=== PATIENT | male | born 1965 ===

== ENCOUNTER 2018-04-27 15:29 | Emergency (ER) | payer OTHER ==
--- NOTE | 2018-04-27 15:49 | ED PDOC ---
Arrival/HPI - General Chief Complaint: High Blood Pressure Time Seen by Provider: 04/27/18 15:31 Historian: Patient, EMS - History of Present Illness Time/Duration: Prior to Arrival Symptom Onset: Gradual Symptom Course: Unchanged Severity Level: Moderate Associated Symptoms (Text): 04/27/18 15:47 Patient reports generalized weakness and fatigue along with dizziness and lightheadedness and near-syncope beginning just prior to arrival. There is a history of hypertension, and he has not taken his medications in the last 2 days because he forgot. History of hyperlipidemia and borderline diabetes. No chest pain palpitations or dyspnea. No nausea or vomiting. No recent head trauma. No numbness tingling or paresthesias. No weakness. Past Medical History - Cardiac Hx Hypertension: Yes - Psychiatric Hx Substance Use: No - Anesthesia Hx Anesthesia: No Hx Anesthesia Reactions: No Hx Malignant Hyperthermia: No Family/Social History - Physician Review Nursing Documentation Reviewed: Yes Family/Social History: Unknown Family HX Smoking Status: Never Smoked Hx Alcohol Use: No Hx Substance Use: No Allergies/Home Meds Allergies/Adverse Reactions: Allergies Penicillins Allergy (Verified 04/27/18 15:35) ANAPHYLAXIS Review of Systems - Physician Review All systems were reviewed & negative as marked: Yes - Review of Systems Constitutional: absent: Fatigue, Fevers Respiratory: absent: SOB, Wheezing Cardiovascular: absent: Chest Pain, Palpitations, Syncope Gastrointestinal: absent: Abdominal Pain, Diarrhea, Nausea, Vomiting Neurological: Dizziness. absent: Headache, Focal Weakness, Gait Changes, Speech Changes, Facial Droop, Disequilibrium, Seizure Physical Exam Temperature: Afebrile Blood Pressure: Hypertensive Pulse: Regular Respiratory Rate: Normal Appearance: Positive for: Well-Appearing, Non-Toxic, Comfortable Pain Distress: None Mental Status: Positive for: Alert and Oriented X 3 - Systems Exam Head: Present: Atraumatic, Normocephalic Pupils: Present: PERRL Extroacular Muscles: Present: EOMI Conjunctiva: Present: Normal Ears: Present: NORMAL TM, Normal Canal. No: Erythema, TM Bulging Mouth: Present: Moist Mucous Membranes Pharnyx: No: ERYTHEMA, EXUDATE, TONSILS ENLARGED Neck: Present: Normal Range of Motion Respiratory/Chest: Present: Clear to Auscultation, Good Air Exchange, Decreased Breath Sounds. No: Respiratory Distress, Accessory Muscle Use Cardiovascular: Present: Regular Rate and Rhythm, Normal S1, S2. No: Murmurs Abdomen: No: Tenderness, Distention, Peritoneal Signs, Rebound, Guarding Upper Extremity: Present: Normal Inspection. No: Cyanosis, Edema Lower Extremity: Present: Normal Inspection. No: Edema Neurological: Present: GCS=15, CN II-XII Intact, Speech Normal, Motor Func Grossly Intact, Normal Sensory Function, Normal Cerebellar Funct Skin: Present: Warm, Dry, Normal Color. No: Rashes Psychiatric: Present: Alert, Oriented x 3, Normal Insight, Normal Concentration Medical Decision Making ED Course and Treatment: 04/27/18 15:58 EKG shows sinus tachycardia rate approximately 105 with poor R-wave progression and a left axis and no acute ST or T-wave changes. 04/27/18 16:50 Procedure: Chest X-ray Impression: No active disease. Dictator: Matty Seo MD 04/27/18 17:35 Symptoms are improved. Blood pressure is markedly improved. Patient reports that he does have his prescriptions at home, and he will take them as prescribed. - RAD Interpretation Radiology Orders: 04/27/18 15:45 HEAD W/O CONTRAST [CT] Stat CHEST PORTABLE [RAD] Stat Chest one view as read by the radiologist shows no infiltrate effusion or cardiomegaly. CT scan of the head as read by the radiologist shows an arachnoid cyst, otherwise unremarkable. Fun House Attendant: Radiologist - Medication Orders Current Medication Orders: Clonidine HCl (Catapres) 0.2 mg PO ONCE ONE Stop: 04/27/18 15:47 Disposition/Present on Arrival - Present on Arrival Any Indicators Present on Arrival: No History of DVT/PE: No History of Uncontrolled Diabetes: No Urinary Catheter: No History of Decub. Ulcer: No History Surgical Site Infection Following: None - Disposition Have Diagnosis and Disposition been Completed?: Yes Diagnosis: Hypertension, Dizziness Disposition: HOME/ ROUTINE Disposition Time: 17:36 Patient Plan: Discharge Condition: IMPROVED Discharge Instructions (ExitCare): High Blood Pressure in Adults, Dizziness, Nonvertigo, (DC) Additional Instructions: Take your medications as prescribed. Follow-up with your PMD. Follow up in the ER as needed. Referrals: PCP,NO [Primary Care Provider] - Follow up with primary Forms: [employer] (Israeli)
--- NOTE | 2018-04-27 16:12 | RAD ---
Date of service: 04/27/2018 HISTORY: htn COMPARISON: No prior. FINDINGS: LUNGS: No active pulmonary disease. PLEURA: No significant pleural effusion identified, no pneumothorax apparent. CARDIOVASCULAR: No aortic atherosclerotic calcification present. Normal cardiac size. No pulmonary vascular congestion. OSSEOUS STRUCTURES: No significant abnormalities. VISUALIZED UPPER ABDOMEN: Normal. OTHER FINDINGS: None. IMPRESSION: No active disease.
[2018-04-27 16:23] LABS: BASO # 0.01 K/mm3 (0.0-2.0); BASO % 0.1 % (0.0-3.0); EOS # 0.3 (0.0-0.7); EOS % 3.9 % (1.5-5.0); GRAN # 4.12 (1.4-6.5); GRAN % 61.8 % (50.0-68.0); HEMOGLOBIN 14.5 g/dL (14.0-18.0); LYMPH # 1.9 (1.2-3.4); LYMPH % 27.8 % (22.0-35.0); MEAN CORPUSCULAR HGB CONC 33.7 g/dl (31.0-37.0); MONO # 0.4 (0.1-0.6); MONO % 6.4 % (1.0-6.0); RED CELL DISTRIBUTION WIDTH 13.9 % (11.5-14.5); WHITE BLOOD COUNT 6.7 10^3/uL (4.5-11.0)
[2018-04-27 16:37] LABS: ALB/GLOB RATIO 1.3 (1.1-1.8); ALBUMIN 4.4 g/dL (3.0-4.8); ALT/SGPT 39 U/L (7-56); AST/SGOT 29 U/L (17-59); BLOOD UREA NITROGEN 16 mg/dL (7-21); CALCIUM 9.7 mg/dL (8.4-10.5); GFR NON-AFRICAN AMERICAN > 60
[2018-04-27 16:46] LABS: TROPONIN I < 0.01 ng/mL
[2018-04-27 16:53] LABS: CK-MB 2.4 ng/mL (0.0-3.6)
[2018-04-27 17:14] VITALS: RESP 18; TEMP 98; O2SAT 95
--- NOTE | 2018-04-27 17:31 | CT ---
Date of service: 04/27/2018 PROCEDURE: CT HEAD WITHOUT CONTRAST. HISTORY: dizzy COMPARISON: None available. TECHNIQUE: Axial computed tomography images were obtained through the head/brain without intravenous contrast. Radiation dose: Total exam DLP = 1467.38 mGy-cm. This CT exam was performed using one or more of the following dose reduction techniques: Automated exposure control, adjustment of the mA and/or kV according to patient size, and/or use of iterative reconstruction technique. FINDINGS: HEMORRHAGE: No intracranial hemorrhage. BRAIN: Left middle cranial fossa arachnoid cyst causing mild left temporal sulcal effacement. No atrophy or chronic microvascular ischemic changes. VENTRICLES: Unremarkable. No hydrocephalus. CALVARIUM: Unremarkable. PARANASAL SINUSES: Pansinus mucosal thickening. MASTOID AIR CELLS: Unremarkable as visualized. No inflammatory changes. OTHER FINDINGS: None. IMPRESSION: No acute intracranial pathology. Left middle cranial fossa arachnoid cyst. Pansinus mucosal thickening.
[2018-04-27 18:03] VITALS: BP 140/79; PULSE 93
--- NOTE | 2018-04-28 07:57 | CARD ---
APPROVED REPORT Date of service: 04/27/2018 EKG Measurement Heart [id number] <Conclusion> Sinus tachycardia Left axis deviation Abnormal ECG
== END 2018-04-27 18:10 | disposition home or self-care (01) ==
LOC: ED 15:29
DX: I10 Essential (primary) hypertension (principal); R42 Dizziness and giddiness; E78.5 Hyperlipidemia, unspecified

== ENCOUNTER 2018-07-17 12:59 | Emergency (ER) | payer OTHER ==
[2018-07-17 13:14] VITALS: RESP 18; BMI 36.9
--- NOTE | 2018-07-17 15:18 | ED PDOC ---
Arrival/HPI - General Chief Complaint: Palpitations Time Seen by Provider: 07/17/18 13:00 Historian: Patient - History of Present Illness Narrative History of Present Illness (Text): 07/17/18 15:18 A 52 year old male, whose past medical history includes hypertension, presents to the emergency department complaining of shortness of breath and some chest heaviness since this morning. Patient reports he was lifting a heavy box when he suddenly felt symptoms, with chest heaviness first developing to the left-side. Notes shortness of breath is gone with rest, however worsens with exertion. Has had these episodes occur multiple times since admission in 04/2018. Patient believes he might have asthma. Patient notes also experiencing lightheadedness, mild headaches (since head trauma 1 year ago), however denies nausea, vomiting, or any other complaints at this time. No PMD Past Medical History - Provider Review Nursing Documentation Reviewed: Yes - Infectious Disease Hx of Infectious Diseases: None - Cardiac Hx Hypertension: Yes - Pulmonary Hx Respiratory Disorders: No - Neurological Hx Neurological Disorder: No - HEENT Hx HEENT Disorder: No - Renal Hx Renal Disorder: No - Endocrine/Metabolic Hx Endocrine Disorders: No - Hematological/Oncological Hx Blood Disorders: No - Integumentary Hx Dermatological Disorder: No - Musculoskeletal/Rheumatological Hx Musculoskeletal Disorders: No - Gastrointestinal Hx Gastrointestinal Disorders: No - Genitourinary/Gynecological Hx Genitourinary Disorders: No - Psychiatric Hx Psychophysiologic Disorder: No Hx Substance Use: No - Surgical History Hx Appendectomy: Yes - Anesthesia Hx Anesthesia: No Hx Anesthesia Reactions: No Hx Malignant Hyperthermia: No Family/Social History - Physician Review Nursing Documentation Reviewed: Yes Family/Social History: No Known Family HX Smoking Status: Never Smoked Hx Alcohol Use: Yes Frequency of alcohol use: Socially Hx Substance Use: No Allergies/Home Meds Allergies/Adverse Reactions: Allergies Penicillins Allergy (Verified 04/27/18 15:35) ANAPHYLAXIS Review of Systems - Physician Review All systems were reviewed & negative as marked: Yes - Review of Systems Respiratory: SOB Cardiovascular: PERRY, Other (chest heaviness) Gastrointestinal: absent: Nausea, Vomiting Neurological: Headache (lightheadedness and mild headaches (since head trauma 1 year ago)) Physical Exam - Physical Exam Narrative Physical Exam (Text): Gen: VS reviewed, alert, well developed, well nourished, nontoxic, mild distress. ENT: normal pharynx. Eye: EOMI, PERRL. Neck: no JVD, supple, no adenopathy. CV: tachycardic, regular rhythm, no rubs, no murmur, no gallops, S1, S2, pulses equal and strong. Pulm: no distress, clear to auscultation, no wheeze, no rhonchi, breath sounds equal, no rales. Abd: soft, nontender, no guarding, no rebound, no rigidity, normal bowel sounds. Ext: no edema. Skin: good color, no rash, no cyanosis. Psych: responds appropriately to questions, normal affect. Neuro: oriented x 3, CN2-12 intact grossly, motor intact, sensation intact. Vital Signs Reviewed: Yes Vital Signs Temp Pulse Resp BP Pulse Ox 07/17/18 13:13 98.7 F 103 H 18 160/89 H 95 Temperature: Afebrile Blood Pressure: Hypertensive Pulse: Regular Respiratory Rate: Normal Appearance: Positive for: Well-Appearing, Non-Toxic, Comfortable Pain Distress: None Mental Status: Positive for: Alert and Oriented X 3 Medical Decision Making ED Course and Treatment: 07/17/18 15:24 Impression: 52 year male with shortness of breath and some chest heaviness that worsens with exertion. Plan: -- EKG -- Angio Chest CT -- CXR -- Labs -- Reassess and disposition Progress Notes: n007/17/18 13:07 EKG: Ordered, reviewed, and independently interpreted the EKG. Rate : 103 BPM Rhythm : Sinus tachycardia. Interpretation : RBBB. Comparison : No previous EKG for comparison. 07/17/18 20:39 patient seen for exertional chest pain and shortness of breath, pains intermittent ongoing for several days, heart score =3. patient remains stable throughout emergency department course. despite negative dimer i felt it was best to get V/Q as the patient could not be exclude for PE with PERC rule. Unfortunately CTA was inconclusive. - RAD Interpretation Narrative RAD Interpretations (Text): 07/17/2018 15:25 Chest X-ray IMPRESSION: No active disease. Dictator: Matty Etienne MD 07/17/2018 16:[address] IMPRESSION: Grossly suboptimal CT angiogram of the pulmonary artery system. Patient's cardiac output may have been fast as iodinated contrast material is identified primarily at the left thyroid at the time of image acquisition although proper enhancement is seen at the main pulmonary artery in the preliminary set up scan. Pulmonary embolus cannot be evaluated as result including in the main, right and left pulmonary arteries and consideration of follow-up nuclear ventilation perfusion lung scan is recommended as clinically warranted. No acute cardiopulmonary disease appreciable. No significant lymphadenopathy. No mass or pulmonary vascular congestion appreciable. Dictator: Arturo Schmidt MD Radiology Orders: 07/17/18 14:16 CHEST PORTABLE [RAD] Stat 07/17/18 14:48 ANGIO CHEST PE PROTOCOL [CT] Stat - Scribe Statement The provider has reviewed the documentation as recorded by the Zakiya Roy Provider Scribe Attestation: All medical record entries made by the Scribe were at my direction and personally dictated by me. I have reviewed the chart and agree that the record accurately reflects my personal performance of the history, physical exam, medical decision making, and the department course for this patient. I have also personally directed, reviewed, and agree with the discharge instructions and disposition. Disposition/Present on Arrival - Present on Arrival Any Indicators Present on Arrival: No History of DVT/PE: No History of Uncontrolled Diabetes: No Urinary Catheter: No History of Decub. Ulcer: No History Surgical Site Infection Following: None - Disposition Have Diagnosis and Disposition been Completed?: Yes Diagnosis: Chest pain Disposition: HOME/ ROUTINE Disposition Time: 21:32 Patient Plan: Discharge Patient Problems: Current Active Problems Problem Status Onset Chest pain Acute Condition: STABLE Discharge Instructions (ExitCare): High Cholesterol, Chest Pain (ED) Additional Instructions: return for any new or worsening symptoms. you must follow up with a golf cart repairer for further evaluation of your chest pain-you will likely need a stress test. you should take a BABY ASPIRIN EVERY DAY to protect your heart. Prescriptions: Losartan Potassium 25 mg PO DAILY #90 tablet Referrals: PCP,NO [Primary Care Provider] - Follow up with primary Rick Doll MD [Staff Provider] - Follow up with primary [facility] [Outside] - Follow up with primary Debi Ruth MD [Medical Doctor] - Follow up with primary Forms: [employer] (Kazakh)
[2018-07-17 15:20] LABS: BASO # 0.01 K/mm3 (0.0-2.0); BASO % 0.1 % (0.0-3.0); EOS # 0.1 (0.0-0.7); EOS % 1.5 % (1.5-5.0); GRAN # 5.41 (1.4-6.5); GRAN % 69.8 % (50.0-68.0); HEMOGLOBIN 14.8 g/dL (14.0-18.0); LYMPH # 1.8 (1.2-3.4); LYMPH % 23.3 % (22.0-35.0); MEAN CELL VOLUME 85.7 fl (80.0-105.0); MEAN CORPUSCULAR HGB CONC 33.8 g/dl (31.0-37.0); MEAN PLATELET VOLUME 10.8 fl (7.0-11.0); MONO # 0.4 (0.1-0.6); MONO % 5.3 % (1.0-6.0); RBC 5.11 10^6/uL (3.5-6.1); RED CELL DISTRIBUTION WIDTH 13.7 % (11.5-14.5); WHITE BLOOD COUNT 7.8 10^3/uL (4.5-11.0)
[2018-07-17 15:27] LABS: ALB/GLOB RATIO 1.3 (1.1-1.8); ALBUMIN 4.7 g/dL (3.0-4.8); ALT/SGPT 54 U/L (7-56); AST/SGOT 31 U/L (17-59); BLOOD UREA NITROGEN 13 mg/dL (7-21); CALCIUM 9.6 mg/dL (8.4-10.5); GFR NON-AFRICAN AMERICAN > 60; HDL CHOLESTEROL 52 mg/dL (29-60)
[2018-07-17 15:28] LABS: INR 1.06; PROTHROMBIN TIME 11.8 SECONDS (9.4-12.5)
--- NOTE | 2018-07-17 15:28 | RAD ---
Date of service: 07/17/2018 HISTORY: chest pain COMPARISON: 04/27/2018 FINDINGS: LUNGS: No active pulmonary disease. PLEURA: No significant pleural effusion identified, no pneumothorax apparent. CARDIOVASCULAR: No aortic atherosclerotic calcification present. Normal cardiac size. No pulmonary vascular congestion. OSSEOUS STRUCTURES: No significant abnormalities. VISUALIZED UPPER ABDOMEN: Normal. OTHER FINDINGS: None. IMPRESSION: No active disease.
[2018-07-17 15:31] LABS: D DIMER < 200 ng/mlDDU (0-243)
[2018-07-17 15:38] LABS: LDL CHOLESTEROL 175 mg/dL (0-129)
[2018-07-17 15:41] LABS: TROPONIN I < 0.01 ng/mL
--- NOTE | 2018-07-17 16:53 | CT ---
Date of service: 07/17/2018 PROCEDURE: CT Chest with contrast (Pulmonary Angiogram) HISTORY: pulmonary embolism COMPARISON: None available. TECHNIQUE: Axial computed tomography images were obtained of the chest in the pulmonary arterial phase of enhancement. Coronal and sagittal reformatted images were created and reviewed. Intravenous contrast dose: Omnipaque 350, 146 cc Radiation dose: Total exam DLP = 527.84 mGy-cm. This CT exam was performed using one or more of the following dose reduction techniques: Automated exposure control, adjustment of the mA and/or kV according to patient size, and/or use of iterative reconstruction technique. FINDINGS: PULMONARY ARTERIES: Despite the region of interest being set up in the proper location of the main pulmonary artery in the pulmonary scanning performed immediately prior to intravenous contrast administration, the boluses in the left heart at the time of imaging with minimal contrast in the main pulmonary artery limiting the interpretation severely. In fact the pulmonary artery is opacified in the 2nd of 2 preliminary images presumably at the time of initiation of the study. Evaluation of the pulmonary artery system is grossly suboptimal. Consider follow-up nuclear ventilation perfusion lung scan as clinically warranted. AORTA: No acute findings. No thoracic aortic aneurysm. No aortic atherosclerotic calcification or mural plaque present. LUNGS: Unremarkable. No nodule, mass or pulmonary consolidation. PLEURAL SPACES: Unremarkable. No effusion or pneumothorax. HEART: Unremarkable. No cardiomegaly. No significant pericardial effusion. LYMPH NODES: No lymphadenopathy. BONES, CHEST WALL: Unremarkable. No fracture or destructive lesion OTHER FINDINGS: Tiny Bochdalek's hernia is appreciate related to left hemidiaphragm posteriorly, containing only fat. IMPRESSION: Grossly suboptimal CT angiogram of the pulmonary artery system. Patient's cardiac output may have been fast as iodinated contrast material is identified primarily at the left thyroid at the time of image acquisition although proper enhancement is seen at the main pulmonary artery in the preliminary set up scan. Pulmonary embolus cannot be evaluated as result including in the main, right and left pulmonary arteries and consideration of follow-up nuclear ventilation perfusion lung scan is recommended as clinically warranted. Findings discussed with Dr. Waldrop with written down and read back verification 07/17/2018 4:27 p.m.. No acute cardiopulmonary disease appreciable. No significant lymphadenopathy. No mass or pulmonary vascular congestion appreciable.
[2018-07-17 19:24] VITALS: O2SAT 98
--- NOTE | 2018-07-17 20:14 | CARD ---
APPROVED REPORT Date of service: 07/17/2018 EKG Measurement Heart [id number] <Conclusion> Sinus tachycardia Possible Left atrial enlargement Right bundle branch block Abnormal ECG
[2018-07-17 21:58] VITALS: BP 158/95; PULSE 70
[2018-07-18 06:03] VITALS: TEMP 98
--- NOTE | 2018-07-18 14:42 | NM ---
Date of service: 07/17/2018 COMPARISON: Chest x-ray 07/17/2018 TECHNIQUE: 33.0 mCi technetium 99-m DTPA aerosol. 4.0 mCI technetium 99-m MAA administered intravenously. FINDINGS: VENTILATION COMPONENT: Normal. PERFUSION COMPONENT: Normal. IMPRESSION: Lowprobability ventilation perfusion scan for pulmonary embolism.
== END 2018-07-17 22:15 | disposition home or self-care (01) ==
LOC: ED 12:59
DX: R07.9 Chest pain, unspecified (principal); I10 Essential (primary) hypertension
CPT/HCPCS: 71045; 71275; 78582; 80053; 80061; 84484; 85025; 85378; 85610; 85730; 93005; 99284; Q9967